=== PATIENT | male | born 1980 | race Caucasian/White ===

== ENCOUNTER 2021-03-20 12:06 | Inpatient (IN) | payer BC ==
[~2021-03-20] VITALS: Ht 177.8 cm; Wt 119.0 kg
[2021-03-20] MEDS ORDERED: IV NORMAL SALINE 1,000ML 1,000 ML IV ONE ×2 (12:30→13:45)
[2021-03-20] MEDS ORDERED: ONDANSETRON PF 4 MG/2 ML VIAL. IVP ONE (12:30)
[2021-03-20 12:57] LABS: CALCIUM 11.7 mg/dL (8.5-10.1); CREATININE 1.2 mg/dL (0.7-1.3); GFR 66.7; POTASSIUM 4.5 mmol/L (3.5-5.1)
[2021-03-20 13:04] LABS: ALBUMIN 4.6 g/dL (3.4-5.0); ALBUMIN/GLOBULIN RATIO 1.2 (1.0-1.7); TOTAL BILIRUBIN 1.2 mg/dL (0.2-1.0); TOTAL PROTEIN 8.5 g/dL (6.4-8.2)
[2021-03-20 13:09] LABS: BASO # 0.1 x10^3/uL (0.0-0.2); BASO % 1 % (0-3); EOS # 0.1 x10^3/uL (0.0-0.7); EOS % 1 % (0-3); HEMATOCRIT 55.8 % (39.0-53.0); LYMPH # 1.9 x10^3/uL (1.0-4.8); LYMPH % 16 % (24-48); MEAN CORPUSCULAR HEMOGLOBIN 32 pg (25-35); MEAN CORPUSCULAR HGB CONC 34 g/dL (31-37); MEAN CORPUSCULAR VOLUME 95 fL (79-100); MONO % 9 % (0-9); NEUT # 8.8 x10^3uL (1.8-7.7); NEUT % 74 % (31-73); PLATELET COUNT 284 x10^3/uL (140-400); RED BLOOD COUNT 5.87 x10^6/uL (4.30-5.70); RED CELL DISTRIBUTION WIDTH 14.5 % (11.5-14.5); WHITE BLOOD COUNT 11.9 x10^3/uL (4.0-11.0)
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
--- NOTE | 2021-03-20 13:27 | EKG ---
[address] [address] Test Date: 2021-03-20 Test Time: 13:12:13 Pat Name: MUSTAPHA CAPONE Department: Room: Gender: M Floorleader: REMY : 1980 Requested By: ARNOLD HANDY Order Number: [id number] Reading MD: Measurements Intervals [place] Rate: 96 P: [place]: QRS: 7 QRSD: 100 T: -28 QT: 308 QTc: 395 Interpretive Statements IRREGULAR RHYTHM, NO P-WAVE FOUND VENTRICULAR PREMATURE COMPLEX(ES) ST & T ABNORMALITY, CONSIDER INFERIOR ISCHEMIA OR LEFT VENTRICULAR STRAIN ABNORMAL ECG RI6.02 No previous ECG available for comparison
--- NOTE | 2021-03-20 13:38 | RAD ---
Two-view chest dated 03/20/2021. No comparison available. Clinical data indication: Chest pain. FINDINGS: PA and lateral views obtained. Heart and mediastinal contours are within normal limits. Lungs are jess ar. No consolidation or pleural effusion. No pneumothorax. There is evidence of prior ORIF left clavi jess. IMPRESSION: No acute radiographic abnormality. Electronically signed by: Mahendra Hargrove MD (03/20/2021 1:35 PM) [id number]
[2021-03-20] MEDS ORDERED: IOHEXOL 300 MG/ML 75 ML VIAL. IV ONE (13:45)
[2021-03-20] MEDS ORDERED: METOCLOPRAMIDE HCL 10 MG/2 ML VIAL. IVP ONE (13:45)
[2021-03-20] MEDS ORDERED: CONTRAST GIVEN. MC PRN (13:45)
[2021-03-20] MEDS ORDERED: MORPHINE SULFATE 4 MG/ML DISP.SYRIN. IV ONE (13:45)
--- NOTE | 2021-03-20 14:09 | RAD ---
CT abdomen pelvis with contrast dated 03/20/2021. No comparison available. CLINICAL INDICATION: Elevated lipase. TECHNIQUE: Contiguous axial imaging the M pelvis performed after the administration of 75 cc Isovue-370. One or more of the following individualized dose reduction techniques were utilized for this examinat ion: 1. Automated exposure control 2. Adjustment of the mA and/or kV according to patient size 3. Use of iterative reconstruction technique. FINDINGS:. Limited images of lung bases are clear. Heart size within normal limits. No pleural or pericardial ef fusion. There is diffuse low-density liver compatible with fatty infiltration. No apparent mass. Biliary tree normal in caliber. Gallbladder unremarkable. There is mild inflammatory stranding and fluid around the pancreatic head and neck region. The body a nd tail are unremarkable. No apparent choledocholithiasis. Unopacified GI tract normal in caliber and contour. No focal bowel wall thickening. Scattered diverti cula throughout the colon. No pericolic inflammatory stranding. The appendix is not clearly identifie d and likely surgically absent. No ascites or lymphadenopathy. Abdominal aorta normal in caliber. Spleen is normal in size. Adrenal glands and kidneys are unremarkable. No hydronephrosis. Images of pelvis show nondistended urinary bladder. There is mild diffuse bladder wall thickening. Pr ostate gland normal in size. No free fluid or lymphadenopathy. Bone windows show no acute finding. Mild lower lumbar spondylosis. IMPRESSION: 1. Inflammatory changes with small amount of fluid around the pancreatic head and and neck. Consider groove pancreatitis or descending duodenitis. No evidence of pseudocyst. 2. Mild fatty infiltration of the liver. 3. Diverticulosis. 4. Mild wall thickening of the urinary bladder, nonspecific. Electronically signed by: Mahendra Hargrove MD (03/20/2021 2:06 PM) [id number]
[2021-03-20] MEDS ORDERED: ENALAPRILAT 2.5 MG/2 ML VIAL. IV ONE (15:15)
[2021-03-20 16:00] VITALS: BP 162/107
[2021-03-20] MEDS ORDERED: chlordiazePOXIDE HCL 25 MG CAPSULE PO PRN ×2 (16:00)
[2021-03-20] MEDS ORDERED: cloNIDine HCL 0.1 MG TABLET PO PRN (16:00)
[2021-03-20] MEDS ORDERED: HALOPERIDOL LACT 5 MG/ML VIAL. IM PRN (16:00)
[2021-03-20] MEDS ORDERED: diphenhydrAMINE 50 MG/ML VIAL IVP PRN (16:00)
--- NOTE | 2021-03-20 16:14 | EKG ---
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
[2021-03-20] MEDS ORDERED: MVI, ADULT NO.4 WITH VIT K 10 ML, FOLIC ACID INJ 1 MG, THIAMINE INJ 100 MG in IV NORMAL... IV ONE (17:00)
[2021-03-20] MEDS: ONDANSETRON PF 4 MG/2 ML VIAL. IVP PRN ×2 (17:07→21:40)
--- NOTE | 2021-03-20 19:31 | NUR ---
Admission Patient was admitted to floor per ED. Patient accompanied per (Macarena), patient continues to have pain rating of 8-9, dry heaving, restlessness, and would like fluids by mouth. Patient explained nothing by mouth diet, patient orientated to unit, admission done, medications and intravenous fluids administered.
[2021-03-20 19:57] VITALS: BP 173/107
[2021-03-20 21:27] LABS: BILIRUBIN,URINE SMALL (NEG); CLARITY,URINE CLEAR; COLOR,URINE YELLOW; GLUCOSE,URINE NEG (NEG); NITRITE,URINE NEG (NEG); UROBILINOGEN,URINE 0.2 mg/dL (0.2 mg/dL)
[2021-03-20 21:29] LABS: BACTERIA,URINE 0 /HPF (0-FEW); RBC,URINE 0 /HPF (0-2); WBC,URINE OCC /HPF (0-4)
[2021-03-20] MEDS ORDERED: hydrALAZINE 20 MG/ML VIAL. IV PRN (21:45)
[2021-03-20 23:00] VITALS: BP 161/86
[2021-03-21] MEDS: ONDANSETRON PF 4 MG/2 ML VIAL. IVP PRN ×2 (00:53→09:26)
[2021-03-21] MEDS ORDERED: IV NORMAL SALINE 1,000ML 1,000 ML IV SCH (04:00)
[2021-03-21] MEDS ORDERED: PROCHLORPERAZINE 10 MG/2 ML VIAL. IM PRN (04:15)
[2021-03-21] MEDS ORDERED: PROCHLORPERAZINE 10 MG/2 ML VIAL. IV PRN (05:15)
[2021-03-21] MEDS: HYDROmorphone PF 2 MG/ML VIAL IVP PRN ×2 (05:18→09:25)
[2021-03-21 06:06] VITALS: BP 142/89
--- NOTE | 2021-03-21 06:15 | NUR ---
Nursing note: Spoke with Dr. Ritter at beginning of shift regarding elevated BP even after administration of clonidine; hydralazine IVP ordered, ativan and hydralazine given, BP much improved. Pt continued to report severe pain and nausea throughout shift even after administration of ativan, fentanyl, and zofran. Pt slept less than 2 hours throughout shift d/t pain and nausea. New orders AM to control pain/nausea, dilaudid and compazine. Pt currently asleep in bed.
[2021-03-21 06:46] LABS: BASO % 0 % (0-3); EOS % 0 % (0-3); HEMATOCRIT 51.2 % (39.0-53.0); HEMOGLOBIN 17.2 g/dL (13.0-17.5); LYMPH # 0.7 x10^3/uL (1.0-4.8); LYMPH % 4 % (24-48); MEAN CORPUSCULAR HEMOGLOBIN 32 pg (25-35); MEAN CORPUSCULAR HGB CONC 34 g/dL (31-37); MEAN CORPUSCULAR VOLUME 96 fL (79-100); MONO # 1.4 x10^3/uL (0.0-1.1); MONO % 9 % (0-9); NEUT # 14.5 x10^3uL (1.8-7.7); NEUT % 87 % (31-73); PLATELET COUNT 224 x10^3/uL (140-400); RED BLOOD COUNT 5.34 x10^6/uL (4.30-5.70); RED CELL DISTRIBUTION WIDTH 14.7 % (11.5-14.5); WHITE BLOOD COUNT 16.7 x10^3/uL (4.0-11.0)
[2021-03-21 06:49] LABS: ALBUMIN 3.9 g/dL (3.4-5.0); ALBUMIN/GLOBULIN RATIO 1.1 (1.0-1.7); CALCIUM 9.9 mg/dL (8.5-10.1); CREATININE 0.9 mg/dL (0.7-1.3); MAGNESIUM 1.8 mg/dL (1.8-2.4); POTASSIUM 4.2 mmol/L (3.5-5.1); TOTAL BILIRUBIN 1.2 mg/dL (0.2-1.0); TOTAL PROTEIN 7.3 g/dL (6.4-8.2)
[2021-03-21 07:16] LABS: % EOS 12 % (0-5); % LYMPHS 3 % (24-48); % MONOS 5 % (0-10); % SEGS 80 % (35-66); PLT ESTIMATE ADEQUATE (ADEQUATE)
--- NOTE | 2021-03-21 09:51 | NUR ---
Nursing note pt asked clarifying questions about alcohol use and pt reports having "a pint or more of vodka each night to help me sleep" pt also reports that his last drink was 03/20/21 prior to admission.
[2021-03-21 11:02] VITALS: BP 150/87
[2021-03-21] MEDS ORDERED: HYDROmorphone PF 1 MG/ML DISP.SYRIN IVP PRN (11:30)
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
[2021-03-21 12:41] LABS: BGAS PH 7.38 (7.35-7.46)
[2021-03-21] MEDS ORDERED: CARV6.2541 PO (13:32)
[2021-03-21] MEDS ORDERED: LISI20TA18 PO (13:32)
--- NOTE | 2021-03-21 14:02 | RAD ---
Single view chest dated 03/21/2021. Comparison made to 03/20/2021. CLINICAL INDICATION: Shortness breath FINDINGS: Single upright portable exam performed. Heart and mediastinal contours are stable. Lung volumes are l ow, limiting evaluation. There are some prominent linear markings at both lung bases. No pleural effu osmel. No pneumothorax. Old healed left clavicle fracture status post ORIF. IMPRESSION: Limited exam. Prominent linear markings at both lung bases could be related to atelectasis and/or vas cular crowding. Electronically signed by: Mahendra Hargrove MD (03/21/2021 2:00 PM) [id number]
[2021-03-21 14:23] VITALS: BP 148/97
--- NOTE | 2021-03-21 14:52 | EKG ---
[address] [address] Test Date: 2021-03-21 Test Time: 13:27:39 Pat Name: MUSTAPHA CAPONE Department: Room: 115 A Gender: M Credit And Collections Analyst: : 1980 Requested By: KEINA HSIEH Order Number: [id number] Reading MD: Measurements Intervals [place] Rate: 121 P: 36 [place]: 162 QRS: 26 QRSD: 84 T: 34 QT: 284 QTc: 406 Interpretive Statements SINUS TACHYCARDIA NO SPECIFIC ECG ABNORMALITIES RI6.01 No previous ECG available for comparison
--- NOTE | 2021-03-21 17:33 | DS ---
DISCHARGE/TRANSFER SUMMARY HOSPITAL COURSE: The patient is a 40-year-old male patient who was admitted yesterday with severe abdominal pain and was ultimately diagnosed with alcohol-induced pancreatitis. He continued to complain of severe abdominal pain and also withdrawing from alcohol that required large amount of sedation and on top of that he is morbidly obese and has obstructive sleep apnea. His serum lipase actually has worsened and he continued to complain of severe pain despite a huge amount of hydromorphone. He was hypoxic, in fact was very cyanotic when I saw him this morning and we did actually arterial blood gases, which showed that his pH was 7.38, pCO2 of 52, pO2 of 63 and oxygen saturation was 90% on FiO2 of 28%. His serum lipase has dramatically risen from 1871 to 5771 as he might require intubation as his requirement of pain medication is excessive. I felt the patient would be much safer at [facility] ICU as this seemed to be more complicated pancreatitis with multiple comorbidities. PHYSICAL EXAMINATION: GENERAL: When I saw him this afternoon, he was clearly restless, lethargic, but no jaundice, cyanosis, no lymphadenopathy, no thyromegaly, no jugular venous distention. No limb edema. VITAL SIGNS: His heart rate was 118, blood pressure 148/97, temperature was 98.2, respiratory rate was 20 and oxygen saturation was 95% on 2 liters of oxygen. His oxygen was only 88% on room air. HEAD, EYES, EARS, NOSE AND THROAT: Normocephalic, atraumatic. NECK: Supple. HEART: Showed normal first and second heart sounds. No gallop or murmur. CHEST: Shows central trachea, equally reduced expansion, reduced air entry, vesicular sounds. No crepitation or rhonchi. ABDOMEN: Not distended, tenderness mostly in the epigastric area and right upper quadrant. There is no guarding or rigidity. No organomegaly. All hernial orifice intact. Bowel sounds normal. NEUROLOGIC: He is very lethargic, arousable. All cranial nerves intact. He moves extremities without difficulty. LABORATORY DATA: His lab work this afternoon showed a serum sodium 140, potassium 4.2, chloride 102, bicarbonate 28, anion gap of 10, BUN 7, creatinine 0.9. Estimated GFR was 93 mL per minute. His glucose 126, calcium was 9.9, magnesium was 1.8. Total bilirubin, AST, ALT are normal. Alkaline phosphatase is also normal. Total protein 7.3, albumin 3.9. His serum lipase was 5771. His white cell count was 16,700, hemoglobin 17, hematocrit 51, MCV 96, and a platelet count 224,000 with manual differential which showed 87% polymorphs 1% lymphocytes and 9% monocytes. His blood gases showed a pH of 7.38, pCO2 of 52, pO2 of 63, bicarbonate 30 and oxygen saturation was 90% on FIO2 28%. Urinalysis essentially unremarkable. The patient was transferred to [facility]. Continue on his banana bag as well as IV fluid. Continue with alcohol withdrawal protocol. Hydromorphone, Compazine and Zofran. FINAL DISCHARGE DIAGNOSES: 1. Acute alcohol-induced pancreatitis. 2. Alcoholism. 3. Hypertension. 4. Morbid obesity. 5. Obstructive sleep apnea. 6. Depression. 7. Acute hypoxic hypercapnic respiratory failure. RUBEN DR: Tahira TID: [id number]
--- NOTE | 2021-03-21 20:17 | PN ---
DATE: 03/21/2021 SUBJECTIVE: The patient is a 40-year-old male patient who was admitted yesterday with acute alcohol-induced pancreatitis, apparently has been complaining of severe pain and would have changed him from fentanyl to hydromorphone. By the time I saw him this morning, he was extremely lethargic, could barely opens his eyes and he was also hypoxic. We did start him on 2 liters of oxygen via nasal cannula. I cut down his hydromorphone to 1 mg every 4 hours. I will arrange for him to have a stat ABG to make sure that he is not retaining carbon dioxide given that he is known to have obstructive sleep apnea. He is morbidly obese and normally on CPAP. PHYSICAL EXAMINATION: GENERAL: When I saw him this morning, he was somewhat plethoric, but not jaundiced or cyanosed. No lymphadenopathy, no thyromegaly, no jugular venous distention, no lower limb edema. VITAL SIGNS: Heart rate was 127, blood pressure 150/87, temperature was 99.4, respiratory rate 20, and oxygen saturation was 88% on room air. HEAD, EYES, EARS, NOSE AND THROAT: Normocephalic and atraumatic. NECK: Supple. HEART: Showed normal first and second heart sounds, no gallop or murmur. CHEST: Clear to auscultation. No crepitation or rhonchi. ABDOMEN: Distended. Tenderness mostly in the epigastric area. There is no guarding or rigidity. No organomegaly. All hernial orifice intact. Bowel sounds normal. NEUROLOGIC: He is extremely lethargic, but arousable. All his cranial nerves intact. He moves all extremities without difficulty. LABORATORY DATA: This morning showed a white cell count of 16,700, hemoglobin 17.2, hematocrit 51, MCV 96 and platelet count 224,000 with a manual differential showed 87% polymorphs, 1% lymphocytes, 9% monocytes. His serum sodium was 140, potassium 4.2, chloride 102, bicarbonate 28, anion gap of 10, BUN 7, creatinine was 0.9, estimated GFR was 93 mL per minute. His glucose 126, calcium was 9.9, magnesium was 1.8. Total bilirubin 1.2. AST, ALT, alkaline phosphatase were normal. Her total protein 7.3, albumin was 3.9. Actually, serum lipase has worsened to 5771. ASSESSMENT: 1. Acute alcohol-induced pancreatitis. 2. Alcoholism. 3. Hypertension. 4. Morbid obesity. 5. Obstructive sleep apnea. 6. Depression. PLAN: To continue with n.p.o. status. Continue with IV fluid. The patient seems to be excessively sedated. I will cut down his hydromorphone to 1 mg every 4 hours. I will arrange for him to have a stat ABGs. We did start him on 2 liters of oxygen as his oxygen saturation was only 88%. I will repeat all his lab works again tomorrow. LALITHA/ROSANNA DR: Tahira TID: [id number]
== END 2021-03-21 15:32 | disposition short-term general hospital (02) | DRG 438 ==
LOC: ER 12:06 → 1 SOUTH 15:02
PROVIDERS: ADMIT Internal Medicine; ATTEND Internal Medicine
DX: K85.20 Alcohol induced acute pancreatitis without necrosis or infection (principal); J96.02 Acute respiratory failure with hypercapnia; J96.01 Acute respiratory failure with hypoxia; F10.239 Alcohol dependence with withdrawal, unspecified; I10 Essential (primary) hypertension; E03.9 Hypothyroidism, unspecified; E66.01 Morbid (severe) obesity due to excess calories; G47.33 Obstructive sleep apnea (adult) (pediatric); F32.9 Major depressive disorder, single episode, unspecified; K57.90 Diverticulosis of intestine, part unspecified, without perforation or abscess without bleeding; K76.0 Fatty (change of) liver, not elsewhere classified; Z90.49 Acquired absence of other specified parts of digestive tract; Z82.49 Family history of ischemic heart disease and other diseases of the circulatory system; Z72.0 Tobacco use; Z68.37 Body mass index [BMI] 37.0-37.9, adult
CPT/HCPCS: 36415; 71045; 71046; 74177; 80053; 81001; 82803; 83690; 83735; 84484; 85007; 85025; 93005; 96361; 96374; 96375; J0360; J0780; J1170; J2060; J2270; J2405; J2765; J3010; Q9967; 99285-25; J7030